=== PATIENT | female | born 1925 | race African-American/Black ===

== ENCOUNTER 2016-07-11 20:37 | Inpatient (IN) | payer MEDICARE, OTHER ==
--- NOTE | ~2016-07-11 | DS ---
Discharge Summary [facility] [address] [place]. [address] NAME: DICK ALFONSO : [birth year] STATUS : DIS IN PAT#: [id number] AGE: 89 ADM/REG DATE : 07/11/16 MR#: [id number] REPORT SERV DATE: 07/20/16 DICTATED BY: AUSTIN DUQUE DATE: 07/17/16 REPORT STATUS : Draft TRANSCRIBED BY: ADDISON DATE: 07/17/16 ADMISSION DATE: 07/11/2016 DISCHARGE DATE: 07/17/2016 DISCHARGE DIAGNOSES: 1. Right upper extremity acute deep venous thrombosis. 2. Acute decompensated heart failure with preserved EF. 3. Recurrent catheter-associated urinary tract infections. 4. Chronic obstructive pulmonary disease exacerbation. 5. Chronic kidney disease stage 3. 6. Chronic hyponatremia secondary to SIADH. 7. Hypertension. 8. History of gout. 9. History of peripheral arterial disease. 10.History of chronic right lower extremity ulcer. 11.History of cerebrovascular accident. 12.Paraplegia. 13.Hypoalbuminemia. 14.History of chronic Garza catheter placement. 15.Normocytic anemia. 16.Lower lip hematoma, resolved. 17.Epistaxis, resolved. 18.Bilateral conjunctivitis, resolved. 19.History of coronary artery disease with a remote history of CABG. DISCHARGE CONDITION: Stable. CONSULTATIONS: General Surgery, Dr. Rusesl Diaz. PROCEDURE: Bedside right lower extremity wound debridement. HISTORY OF PRESENT ILLNESS: For detailed HPI, please make reference to Dr. Alessandro Infante's dictation on 07/11/2016. In Brief, this is an 89-year-old female with medical history of congestive heart failure, COPD, and chronic kidney disease stage 3 who presented to the hospital with complaints of worsening shortness of breath, dry cough, wheezing, and significant volume overload. In the ER, temperature was 98.6, pulse 77, blood pressure 158/71, respiratory rate 24, on 2 L of oxygen. Physical exam significant for scattered rhonchi in the upper respiratory tract with diminished breath sounds in the lower lung bases and bilateral lower extremity edema. Also noted is a chronic Garza catheter in place and right lower extremity chronic ulcer. Laboratory data with WBC 11.1, hemoglobin 10, and hematocrit 30. Sodium 125, potassium 3.7, creatinine 1.48. BNP 626. Chest x-ray showed evidence of pulmonary vascular congestion. EKG with normal sinus rhythm with left ventricular hypertrophy. No acute ST-T wave changes. An assessment of acute decompensated heart failure with reduced ejection fraction, COPD Discharge Summary [place] [address] [place]. [address] NAME: DICK ALFONSO : [birth year] STATUS : DIS IN PAT#: [id number] AGE: 89 ADM/REG DATE : 07/11/16 MR#: [id number] REPORT SERV DATE: 07/20/16 DICTATED BY: AUSTIN DUQUE DATE: 07/17/16 REPORT STATUS : Draft TRANSCRIBED BY: MODL DATE: 07/17/16 exacerbation, and catheter-associated urinary tract infection was made in the ER, and the patient was admitted to the Hospitalist Service for further management. HOSPITAL COURSE: Acute decompensated heart failure with reduced EF. The patient was started on IV diuretics. The patient was noted to have significant urine output. Shortness of breath improved and oxygenation also improved during the course of this admission. A repeat echocardiogram was done that showed ejection fraction of 50% as opposed to the last known EF of 30%. The patient was advised to continue beta-armando and diuretics and follow up with Cardiology as an outpatient. No ANDRE inhibitors were prescribed to this patient given known history of renal insufficiency. The patient was advised to follow up with primary care physician and Nephrology as outpatient as regards to re-initiation of ANDRE inhibitors. Catheter-associated urinary tract infection. The patient's urinalysis was positive for leukocyte esterase with noted moderate WBC. The patient was started on empiric IV antibiotics with Rocephin. Urine cultures grew pseudomonas and Enterococcus faecalis with questionable possibility of chronic colonization with this organism as the patient has had repeated UTIs; however, given overall patient's presentation of leukocytosis and some intermittent episodes of confusion, the patient will complete a total course of seven days of antibiotic therapy and follow up with primary care physician. The patient's son was educated on Garza catheter care prior to discharge. Acute DVT of the right upper extremity. During the course of this admission, the patient was noted to have had right upper extremity swelling. A venous Doppler of the upper extremity was done that confirmed the presence of a small thrombus in the right cephalic vein. The patient was started on a heparin drip. However, the patient developed epistaxis and lower lip hematoma and hence heparin was discontinued. During the course of this admission, the patient was noted to have been taking aspirin and Plavix at home prior to admission. I called the patient's primary care physician who clarified that the patient had chronically been on aspirin and Plavix but currently no coronary stents or carotid stents and need for chronic dual antiplatelet therapy unclear. Hence, in conjunction with primary care physician, it was decided to stop aspirin and Plavix and continue transition of patient to Eliquis. The patient was started on Eliquis for DVT treatment during the course of this admission. The patient had no further episodes of bleeds. Hematoma and epistaxis resolved prior to discharge. The patient's hemoglobin remained stable at 10. No evidence of GI bleed noted. The patient was advised to continue Eliquis and follow up with primary care physician as outpatient. Asymptomatic candiduria. The patient's urine culture also grew yeast. The patient was not treated for this as the patient was asymptomatic. The patient's son was educated on Garza catheter care. Chronic right lower extremity ulcer. The patient's general surgeon Dr. Diaz was consulted who came to the bedside and performed a gentle wound debridement and also provided standing instruction on the patient's wound dressing. The patient's son was advised, and these instructions were also provided to the son prior to discharge. DISCHARGE CONDITION: Stable. Discharge Summary [address] [address] NAME: DICK ALFONSO : [birth year] STATUS : DIS IN PAT#: [id number] AGE: 89 ADM/REG DATE : 07/11/16 MR#: [id number] REPORT SERV DATE: 07/20/16 DICTATED BY: AUSTIN DUQUE DATE: 07/17/16 REPORT STATUS : Draft TRANSCRIBED BY: MODLori DATE: 07/17/16 DISCHARGE MEDICATIONS: 1. Eliquis 2.5 mg p.o. daily. 2. Bumex 1 mg p.o. b.i.d. 3. Ceftin 250 mg p.o. b.i.d. for four days. 4. Norvasc 10 mg p.o. daily. 5. Zyloprim 300 mg p.o. daily. 6. Coreg 12.5 mg p.o. b.i.d. 7. Vitamin B12, 1000 mcg p.o. daily. 8. Docusate 100 mg p.o. daily. 9. Ferrous sulfate 325 mg p.o. daily. 10.Florastor 250 mg p.o. b.i.d. 11.Sodium bicarb 650 mg p.o. b.i.d. 12.Prednisone 10 mg p.o. daily (the patient was on chronic steroids prior to presentation, the patient's family could not clarify definitive diagnosis for chronic steroids, the patient's family was advised to clarify with primary care physician the need of chronic steroid). 13.Albuterol inhaler one puff b.i.d. DISCHARGE FOLLOWUP: 1. Follow up with primary care physician within one week of discharge. 2. Follow up with Nephrology as an outpatient. 3. Follow up with Cardiology as an outpatient. DISCHARGE ACTIVITY: As tolerated. DISCHARGE DISPOSITION: Home with home health. The patient's son was at the bedside at the time of discharge and agreed to the above plan. All questions and concerns were addressed prior to discharge. Greater than 40 minutes were used to prepare this patient's discharge, reconcile medication, and advise the patient on discharge plans and followup. DICTATED BY: MD YAO Blood/ADDISON Austin Duque MD / [id number] CC: Discharge Summary [address] [address] NAME: DICK ALFONSO : [birth year] STATUS : DIS IN PAT#: [id number] AGE: 89 ADM/REG DATE : 07/11/16 MR#: [id number] REPORT SERV DATE: 07/20/16 DICTATED BY: AUSTIN DUQUE DATE: 07/17/16 REPORT STATUS : Draft TRANSCRIBED BY: MODL DATE: 07/17/16 MD Esperanza Blood III, M.D.
--- NOTE | ~2016-07-11 | CN ---
Consultation Report [facility] [address] [place]. [address] NAME: DICK ALFONSO : [birth year] STATUS : ADM IN PAT#: [id number] AGE: 89 ADM/REG DATE : 07/11/16 MR#: [id number] REPORT SERV DATE: 07/15/16 DICTATED BY: ROSALINA DIAZ III DATE: 07/15/16 REPORT STATUS : Draft TRANSCRIBED BY: MODL DATE: 07/15/16 CONSULTATION DATE OF CONSULTATION: 07/15/2016 HISTORY OF PRESENT ILLNESS: The patient was admitted with systolic congestive heart failure and acute bronchitis with hypoalbuminemia and nephrotic syndrome, which was newly diagnosed. She also has chronic kidney disease, stage 3, with inappropriate ADH syndrome as well as UTIs with chronic Garza catheterization, and also dementia. The patient has a right leg wound, which has been followed [facility] for a number of months, over one year. The patient's wound on the lateral aspect of the right leg has been treated with antibiotics on number of occasions due to acute cellulitis. Most recently, she was changed from Santyl to Iodosorb due to more secretory in nature of the wound. Iodosorb was used to help dry the wound up. The patient is very confused but reasonably manageable and is tolerating p.o. intake without obvious aspiration. Her chest with a few rhonchi in the bases and her abdomen was soft and nontender. Her lower extremities were very distorted from arthritis and sequela post CVA. She has a right lower extremity lateral decubitus wound, which is 10.4 cm x 2.3 cm with a depth of 0.5. There was one little skip area in the center, but for all practical purposes, this can be measured as one wound. The wound bed is relatively clean, but there is still pressure secondary to the contracted right hip, which the patient tends to abduct laterally and put pressure on this area. The wound base is relatively clean. There is no evidence of cellulitis at this time. Her right ankle was very distorted and she has an Allevyn bandage over it to protect from pressure to the heel, which has been in jeopardy for ulceration as well. PAST HISTORY: The significant past history includes dementia, stroke in the past, cataracts, intra-ocular lens implants, high cholesterol, peripheral artery disease, CABG x3, congestive heart failure, coronary artery disease, myocardial infarction, cardiomyopathy, history of ventricular tachycardia, bronchitis, COPD, arthritis, gout, hip replacement on the left, left lower calf and heel surgery to remove foreign body. Allegedly has only one functioning kidney, is incontinent, bilateral feet ulcers in the past, and a right lower extremity lateral ulceration. Diabetes mellitus in reasonable control. Significant anemia. PAST SURGICAL HISTORY: Past surgical intervention includes multiple debridements on the left, multiple debridements on the right with multiple therapeutic changes in ulceration on the right secondary to cellulitis which has resolved now. IMPRESSION: The patient's ulcer of the right lower extremity is relatively stable and orders will be continued as outlined. The ulcer is a grade 3 Chamberlain lower extremity diabetic wound, which is stable. Orders have been changed very little, but Telfa should not be used since we are using the Iodosorb and packing it with Kerlix sponge to try to help with Consultation Report [address] [place]. [address] NAME: DICK ALFONSO ALLISON : [birth year] STATUS : ADM IN [facility]#: [id number] AGE: 89 ADM/REG DATE : 07/11/16 MR#: [id number] REPORT SERV DATE: 07/15/16 DICTATED BY: ROSALINA DIAZ III DATE: 07/15/16 REPORT STATUS : Draft TRANSCRIBED BY: ADDISON DATE: 07/15/16 debridement and Telfa prevents that from occurring. Will use zinc oxide to the periwound and continue with Iodosorb gel to the wound base. Continue with offloading Mepilex or Allevyn dressings to the heels and sacral areas. Offloading with log rolling as best we can afford would certainly be advantageous to the patient's potential for healing. Follow up in the Wound Center has been planned for two to three weeks, and I have discussed this with the patient's son, who is her primary caregiver. PAT/ADDISON Rosalina Diaz III, M.D. / [id number] CC: MD DAVID Blood LESLIE [facility] [place]
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
[2016-07-11 19:55] LABS: ALLENS TEST Pos; BE (BASE EXCESS) 0.1 MEQ/L (0 +/- 2.5); DEVICE NC; HCO3 (ACTUAL BICARBONATE) 24.5 MEQ/L (23-27); HEMOBLOGIN CONTENT 11.4 G/DL (12-16); INSTRUMENT SERIAL # 8087; METHEMOGLOBIN 0.2 % (0-3); O2 CONTENT 15.8 VOL% (18-24); OPERATOR ID 16503; PCO2 (CO2 TENSION) 39 MMHG (35-45); PO2 (O2 TENSION) 116 MMHG (79-93); SAMPLE Arterial; pH 7.42 (7.37-7.43)
[~2016-07-11 20:37] MED LIST: ADVAIR250 INH; ASAB PO; AZO-CRANBERY450 MG PO; B121000P IM; BROVANA15 MCG INH; BYSTOLIC5 MG PO; CALTRAT600 PO; CARD30 PO; CEFAZ1 IV; CEFT2 PO; COMBIGAN0.2 MG/0.5 OPH; COMBIVENT RESPIM4 GM INH; COREG12 PO; COREG3 PO; CRANBERRY OTC PO; CRANBERRY TAB PO; CYANO1000T PO; D.O.S.100 MG PO; DEMA20 PO; DEXA5B PO; DSS PO; DUONEB INH; FERROUS SULF325 M1 PO; FLORASTOR250 MG PO; HALF81 PO; INSNOVR SC; IODOSORB TOP; IRON325 MG PO; K250 PO; KDUR10 PO; KLOR-CON 1010 MEQ PO; L20 PO; LANTISEPTIC TOP; LEVAQUIN750 MG PO; LIPITOR40 PO; LISINOPRIL40 MG PO; LORTAB 5 PO; LOZOLTAB PO; MELA3 PO; MICRO-K10 MEQ PO; MIRALAXPKT PO; NORCO1 TA1 PO; NORV10 PO; NORV25 PO; OXYGEN; P10 PO; P20 PO; PEP20 PO; PLAVIX PO; PRIN5 PO; PROVENTSOL INH; PROVHFA INH; PULRESP.5 INH; PULRESP1 INH; SODBICAR10 PO; SODCLTAB PO; SPIRO25 PO; SYMBICORT 160/41 INH INH; T3; TYLENOL ARTH650 MG PO; V5 PO; VITAMIN B-121000 MC1 PO; VITAMIN B-121000 MC1 SL; VITAMIN B12 OTC PO; VITC500 PO; XALAT OPH; Z300 PO; ZANTAC 150 PO; ZYVOXPO PO
[2016-07-11 20:47] LABS: BASOPHILS 0.1 %; BASOPHILS ABSOLUTE 0.01 10/3/uL (0.0-0.16); EOSINOPHILS 0.1 %; EOSINOPHILS ABSOLUTE 0.01 10/3/uL (0.0-0.53); HEMATOCRIT 30.5 % (36.0-48.0); HEMOGLOBIN 10.4 g/dL (12.0-16.0); IMMATURE GRANULOCYTES 0.4 %; LYMPHOCYTES 6.4 %; LYMPHOCYTES ABSOLUTE 0.71 10/3/uL (0.67-4.30); MEAN CORPUS HGB CONC 34.1 g/dL (32.0-36.0); MEAN CORPUSCULAR HEMOGLOB 30.8 pg (26.0-34.0); MEAN PLATELET VOLUME 9.2 fL (9.2-13.0); MONOCYTES ABSOLUTE 0.22 10/3/uL (0.21-1.20); NEUTROPHILS ABSOLUTE 10.14 10/3/uL (2.02-8.40); RBC DISTRIBUTION WIDTH 15.5 % (12.0-16.0); RED CELL COUNT 3.38 10/6/uL (4.0-5.6)
[2016-07-11 20:48] LABS: ER CBC TAT 0 Hrs 07 Mins; IMMATURE GRANULOCYTES ABSOLUTE 0.05 10/3/uL (0.0-0.11); MANUAL DIFF NO %; MEAN CORPUSCULAR VOLUME 90.2 fL (80-100); PLATELET COUNT 249 10/3/uL (150-400); WHITE BLOOD CELLS 11.1 10/3/uL (4.5-10.5)
[2016-07-11 20:54] LABS: INTERNATIONAL NORMAL RATI 1.1 UNITS (-); PROTIME (NOT ORD) 13.9 SEC (12.0-14.5)
[2016-07-11 21:11] LABS: A/G RATIO 0.6 (0.7-1.9); ALBUMIN 2.2 G/DL (3.5-5.0); ALKALINE PHOSPHATASE 211 U/L (45-117); BUN (BLOOD UREA NITROGEN) 43 MG/DL (6-23); CALCIUM, SERUM 8.2 MG/DL (8.5-10.4); CHLORIDE, SERUM 89 MMOL/L (96-112); CO2 (CARBON DIOXIDE) 27 MMOL/L (24-34); CREATININE 1.48 MG/DL (0.55-1.02); GFR AFRICAN AMERICAN 36 ML/MIN (>=60); GFR NON AFRICAN AMERICAN 31 ML/MIN (>=60); GLOBULIN 3.8 G/DL (2.5-4.1); GLUCOSE, SERUM 132 MG/DL (60-99); POTASSIUM, SERUM 3.7 MMOL/L (3.5-5.3); SGOT(AST) 23 U/L (5-40); SGPT(ALT) 34 U/L (5-65); SODIUM, SERUM 125 MMOL/L (135-148); TOTAL BILIRUBIN 0.3 MG/DL (0-1.2)
[2016-07-11 21:27] LABS: BAND NEUTROPHILS 2 %; ER DIFF TAT 0 Hrs 46 Mins; LYMPHOCYTES 6 %; LYMPHOCYTES ABSOLUTE (CALC) 0.67 10/3/uL (0.67-4.30); MONOCYTES 2 %; MONOCYTES ABSOLUTE (CALC) 0.22 10/3/uL (0.21-1.20); NEUTROPHILS ABSOLUTE (CALC) 10.21 10/3/uL (2.02-8.40); SEGMENTED NEUTROPHIL (0) 90 %; TOTAL NUCLEATED CELLS 100
[2016-07-11 21:28] LABS: PLATELET ESTIMATE ADQ (ADEQUATE); RBC MORPHOLOGY NORM (NORMAL)
[2016-07-12 05:34] LABS: CREATININE, URINE 25.9 MG/DL
[2016-07-12 05:47] LABS: ASCORBIC ACID (UR NOT ORDER) 40 (NEG); BILIRUBIN, URINE NEGATIVE (NEG); KETONE, URINE NEGATIVE (NEG); LEUKOCYTE ESTERASE(NOT OR LARGE (NEG); WBC (NOT ORDERED) (RFLEX) 163 (0-5)
[2016-07-12 06:34] LABS: HEMATOCRIT 31.3 % (36.0-48.0); HEMOGLOBIN 10.7 g/dL (12.0-16.0); MEAN CORPUS HGB CONC 34.2 g/dL (32.0-36.0); MEAN CORPUSCULAR HEMOGLOB 30.9 pg (26.0-34.0); MEAN CORPUSCULAR VOLUME 90.5 fL (80-100); PLATELET COUNT 247 10/3/uL (150-400); RBC DISTRIBUTION WIDTH 15.5 % (12.0-16.0); RED CELL COUNT 3.46 10/6/uL (4.0-5.6)
[2016-07-12 06:35] LABS: MANUAL DIFF YES %
[2016-07-12 06:43] LABS: INTERNATIONAL NORMAL RATI 1.1 UNITS (-); PROTIME (NOT ORD) 14.4 SEC (12.0-14.5)
[2016-07-12 06:44] LABS: PARTIAL THROMBO TIME 26.4 SEC (22.5-37.2)
[2016-07-12 07:02] LABS: A/G RATIO 0.5 (0.7-1.9); ALBUMIN 2.2 G/DL (3.5-5.0); ALKALINE PHOSPHATASE 210 U/L (45-117); BUN (BLOOD UREA NITROGEN) 40 MG/DL (6-23); CALCIUM, SERUM 8.7 MG/DL (8.5-10.4); CHLORIDE, SERUM 91 MMOL/L (96-112); CK-MB 1.6 NG/ML; CO2 (CARBON DIOXIDE) 23 MMOL/L (24-34); CPK 44 U/L (0-200); CREATININE 1.48 MG/DL (0.55-1.02); GFR AFRICAN AMERICAN 36 ML/MIN (>=60); GFR NON AFRICAN AMERICAN 31 ML/MIN (>=60); GLOBULIN 4.1 G/DL (2.5-4.1); GLUCOSE, SERUM 101 MG/DL (60-99); POTASSIUM, SERUM 3.9 MMOL/L (3.5-5.3); SGOT(AST) 27 U/L (5-40); SGPT(ALT) 30 U/L (5-65); SODIUM, SERUM 125 MMOL/L (135-148); TOTAL BILIRUBIN 0.3 MG/DL (0-1.2); TOTAL PROTEIN 6.3 G/DL (6.0-8.5)
[2016-07-12 07:05] LABS: TROPONIN I 0.05 NG/ML (<0.05)
[2016-07-12 07:55] LABS: BAND NEUTROPHILS 2 %; LYMPHOCYTES 6 %; LYMPHOCYTES ABSOLUTE (CALC) 0.54 10/3/uL (0.67-4.30); MONOCYTES 3 %; MONOCYTES ABSOLUTE (CALC) 0.27 10/3/uL (0.21-1.20); NEUTROPHILS ABSOLUTE (CALC) 8.19 10/3/uL (2.02-8.40); PLATELET ESTIMATE ADQ (ADEQUATE); RBC MORPHOLOGY NORM (NORMAL); SEGMENTED NEUTROPHIL (0) 89 %; TOTAL NUCLEATED CELLS 100
[2016-07-13 05:48] LABS: BASOPHILS 0.1 %; BASOPHILS ABSOLUTE 0.01 10/3/uL (0.0-0.16); EOSINOPHILS 0 %; HEMATOCRIT 32.8 % (36.0-48.0); IMMATURE GRANULOCYTES 0.3 %; IMMATURE GRANULOCYTES ABSOLUTE 0.02 10/3/uL (0.0-0.11); LYMPHOCYTES 7.4 %; LYMPHOCYTES ABSOLUTE 0.54 10/3/uL (0.67-4.30); MANUAL DIFF NO %; MEAN CORPUS HGB CONC 33.5 g/dL (32.0-36.0); MEAN CORPUSCULAR HEMOGLOB 31.2 pg (26.0-34.0); MEAN CORPUSCULAR VOLUME 92.9 fL (80-100); MONOCYTES ABSOLUTE 0.07 10/3/uL (0.21-1.20); NEUTROPHILS 91.2 %; PLATELET COUNT 279 10/3/uL (150-400); RBC DISTRIBUTION WIDTH 15.4 % (12.0-16.0); RED CELL COUNT 3.53 10/6/uL (4.0-5.6); WHITE BLOOD CELLS 7.3 10/3/uL (4.5-10.5)
[2016-07-13 05:52] LABS: CALCIUM, SERUM 8.5 MG/DL (8.5-10.4); CHLORIDE, SERUM 93 MMOL/L (96-112); GFR AFRICAN AMERICAN 33 ML/MIN (>=60); GFR NON AFRICAN AMERICAN 28 ML/MIN (>=60); POTASSIUM, SERUM 4.3 MMOL/L (3.5-5.3); SODIUM, SERUM 129 MMOL/L (135-148)
[2016-07-13 05:55] LABS: BUN (BLOOD UREA NITROGEN) 47 MG/DL (6-23); CO2 (CARBON DIOXIDE) 29 MMOL/L (24-34); GLUCOSE, SERUM 137 MG/DL (60-99)
[2016-07-13 06:18] LABS: PROCALCITONIN 0.45 ng/mL (<0.5)
[2016-07-13 11:39] LABS: T.V. 24HR UR (NOT ORD) 1050 ML (600-1600)
[2016-07-13 11:48] LABS: T.P. URINE (NOT ORDER RAN 187.3 MG/DL; T.P.24HR UR (NOT ORDER) 1967 MG/24HR (40-150)
[2016-07-13 17:38] LABS: ASCORBIC ACID (UR NOT ORDER) 40 (NEG); BILIRUBIN, URINE NEGATIVE (NEG); KETONE, URINE NEGATIVE (NEG); LEUKOCYTE ESTERASE(NOT OR MOD (NEG); WBC (NOT ORDERED) (RFLEX) 33 (0-5)
[2016-07-14 06:57] LABS: BASOPHILS 0.1 %; BASOPHILS ABSOLUTE 0.01 10/3/uL (0.0-0.16); EOSINOPHILS 0 %; HEMATOCRIT 31.3 % (36.0-48.0); HEMOGLOBIN 10.6 g/dL (12.0-16.0); IMMATURE GRANULOCYTES 0.7 %; IMMATURE GRANULOCYTES ABSOLUTE 0.06 10/3/uL (0.0-0.11); LYMPHOCYTES 7.7 %; LYMPHOCYTES ABSOLUTE 0.68 10/3/uL (0.67-4.30); MEAN CORPUS HGB CONC 33.9 g/dL (32.0-36.0); MEAN CORPUSCULAR VOLUME 91.5 fL (80-100); MONOCYTES ABSOLUTE 0.18 10/3/uL (0.21-1.20); NEUTROPHILS 89.5 %; NEUTROPHILS ABSOLUTE 7.88 10/3/uL (2.02-8.40); PLATELET COUNT 311 10/3/uL (150-400); RBC DISTRIBUTION WIDTH 15.1 % (12.0-16.0); RED CELL COUNT 3.42 10/6/uL (4.0-5.6); WHITE BLOOD CELLS 8.8 10/3/uL (4.5-10.5)
[2016-07-14 07:00] LABS: MANUAL DIFF NO %
[2016-07-14 07:10] LABS: ALBUMIN 2.1 G/DL (3.5-5.0); BUN (BLOOD UREA NITROGEN) 50 MG/DL (6-23); CALCIUM, SERUM 8.6 MG/DL (8.5-10.4); CHLORIDE, SERUM 93 MMOL/L (96-112); CO2 (CARBON DIOXIDE) 25 MMOL/L (24-34); GFR AFRICAN AMERICAN 33 ML/MIN (>=60); GFR NON AFRICAN AMERICAN 28 ML/MIN (>=60); GLUCOSE, SERUM 156 MG/DL (60-99); PHOSPHORUS, SERUM 4.3 MG/DL (2.5-4.5); POTASSIUM, SERUM 4.2 MMOL/L (3.5-5.3); SODIUM, SERUM 128 MMOL/L (135-148)
[2016-07-14 10:35] LABS: HEMATOCRIT 30.7 % (36.0-48.0); HEMOGLOBIN 10.7 g/dL (12.0-16.0)
[2016-07-14 13:57] LABS: HEMATOCRIT 31.6 % (36.0-48.0); HEMOGLOBIN 10.8 g/dL (12.0-16.0)
[2016-07-15 07:13] LABS: BASOPHILS 0.2 %; BASOPHILS ABSOLUTE 0.02 10/3/uL (0.0-0.16); EOSINOPHILS 0.1 %; EOSINOPHILS ABSOLUTE 0.01 10/3/uL (0.0-0.53); HEMATOCRIT 29.2 % (36.0-48.0); IMMATURE GRANULOCYTES 1.2 %; IMMATURE GRANULOCYTES ABSOLUTE 0.13 10/3/uL (0.0-0.11); LYMPHOCYTES 16.8 %; MANUAL DIFF NO %; MEAN CORPUS HGB CONC 34.2 g/dL (32.0-36.0); MEAN CORPUSCULAR HEMOGLOB 31.1 pg (26.0-34.0); MEAN CORPUSCULAR VOLUME 90.7 fL (80-100); MEAN PLATELET VOLUME 8.9 fL (9.2-13.0); MONOCYTES 7.6 %; MONOCYTES ABSOLUTE 0.81 10/3/uL (0.21-1.20); NEUTROPHILS 74.1 %; NEUTROPHILS ABSOLUTE 7.92 10/3/uL (2.02-8.40); PLATELET COUNT 238 10/3/uL (150-400); RBC DISTRIBUTION WIDTH 15.6 % (12.0-16.0); RED CELL COUNT 3.22 10/6/uL (4.0-5.6); WHITE BLOOD CELLS 10.7 10/3/uL (4.5-10.5)
[2016-07-15 07:19] LABS: BAND NEUTROPHILS 1 %; LYMPHOCYTES 18 %; LYMPHOCYTES ABSOLUTE (CALC) 1.93 10/3/uL (0.67-4.30); MONOCYTES 8 %; MONOCYTES ABSOLUTE (CALC) 0.86 10/3/uL (0.21-1.20); NEUTROPHILS ABSOLUTE (CALC) 7.92 10/3/uL (2.02-8.40); PLATELET ESTIMATE ADQ (ADEQUATE); RBC MORPHOLOGY NORM (NORMAL); SEGMENTED NEUTROPHIL (0) 73 %; TOTAL NUCLEATED CELLS 100
[2016-07-15 07:26] LABS: ALBUMIN 2.1 G/DL (3.5-5.0); BUN (BLOOD UREA NITROGEN) 66 MG/DL (6-23); CALCIUM, SERUM 8.3 MG/DL (8.5-10.4); CHLORIDE, SERUM 96 MMOL/L (96-112); CO2 (CARBON DIOXIDE) 25 MMOL/L (24-34); GFR AFRICAN AMERICAN 28 ML/MIN (>=60); GFR NON AFRICAN AMERICAN 25 ML/MIN (>=60); POTASSIUM, SERUM 4.3 MMOL/L (3.5-5.3); SODIUM, SERUM 132 MMOL/L (135-148)
[2016-07-15 07:27] LABS: GLUCOSE, SERUM 100 MG/DL (60-99); PHOSPHORUS, SERUM 3.2 MG/DL (2.5-4.5)
[2016-07-15 18:49] LABS: HEMOGLOBIN 10.5 g/dL (12.0-16.0)
[2016-07-16 07:34] LABS: BASOPHILS 0.2 %; BASOPHILS ABSOLUTE 0.02 10/3/uL (0.0-0.16); EOSINOPHILS 0.6 %; EOSINOPHILS ABSOLUTE 0.07 10/3/uL (0.0-0.53); HEMATOCRIT 32.2 % (36.0-48.0); HEMOGLOBIN 10.9 g/dL (12.0-16.0); IMMATURE GRANULOCYTES 1.4 %; IMMATURE GRANULOCYTES ABSOLUTE 0.16 10/3/uL (0.0-0.11); LYMPHOCYTES ABSOLUTE 2.24 10/3/uL (0.67-4.30); MEAN CORPUS HGB CONC 33.9 g/dL (32.0-36.0); MEAN CORPUSCULAR HEMOGLOB 30.8 pg (26.0-34.0); MEAN PLATELET VOLUME 8.6 fL (9.2-13.0); MONOCYTES 8.4 %; MONOCYTES ABSOLUTE 0.94 10/3/uL (0.21-1.20); NEUTROPHILS 69.4 %; NEUTROPHILS ABSOLUTE 7.77 10/3/uL (2.02-8.40); PLATELET COUNT 283 10/3/uL (150-400); RBC DISTRIBUTION WIDTH 15.7 % (12.0-16.0); RED CELL COUNT 3.54 10/6/uL (4.0-5.6); WHITE BLOOD CELLS 11.2 10/3/uL (4.5-10.5)
[2016-07-16 07:35] LABS: MANUAL DIFF NO %
[2016-07-16 07:51] LABS: ALBUMIN 2.3 G/DL (3.5-5.0); BUN (BLOOD UREA NITROGEN) 71 MG/DL (6-23); CALCIUM, SERUM 8.7 MG/DL (8.5-10.4); CHLORIDE, SERUM 97 MMOL/L (96-112); CO2 (CARBON DIOXIDE) 31 MMOL/L (24-34); CREATININE 1.87 MG/DL (0.55-1.02); GFR AFRICAN AMERICAN 27 ML/MIN (>=60); GFR NON AFRICAN AMERICAN 23 ML/MIN (>=60); GLUCOSE, SERUM 94 MG/DL (60-99); PHOSPHORUS, SERUM 2.9 MG/DL (2.5-4.5); POTASSIUM, SERUM 4.2 MMOL/L (3.5-5.3); SODIUM, SERUM 134 MMOL/L (135-148)
[2016-07-17 07:07] LABS: HEMATOCRIT 29.3 % (36.0-48.0); MANUAL DIFF YES %; MEAN CORPUS HGB CONC 34.1 g/dL (32.0-36.0); MEAN CORPUSCULAR VOLUME 90.7 fL (80-100); MEAN PLATELET VOLUME 9.1 fL (9.2-13.0); PLATELET COUNT 251 10/3/uL (150-400); RBC DISTRIBUTION WIDTH 15.8 % (12.0-16.0); RED CELL COUNT 3.23 10/6/uL (4.0-5.6); WHITE BLOOD CELLS 12.5 10/3/uL (4.5-10.5)
[2016-07-17 07:23] LABS: BUN (BLOOD UREA NITROGEN) 72 MG/DL (6-23); CALCIUM, SERUM 8.1 MG/DL (8.5-10.4); CHLORIDE, SERUM 98 MMOL/L (96-112); CO2 (CARBON DIOXIDE) 33 MMOL/L (24-34); CREATININE 1.69 MG/DL (0.55-1.02); GFR AFRICAN AMERICAN 31 ML/MIN (>=60); GFR NON AFRICAN AMERICAN 26 ML/MIN (>=60); GLUCOSE, SERUM 94 MG/DL (60-99); POTASSIUM, SERUM 4.2 MMOL/L (3.5-5.3); SODIUM, SERUM 135 MMOL/L (135-148)
[2016-07-17 07:39] LABS: BAND NEUTROPHILS 4 %; EOSINOPHILS 1 %; EOSINOPHILS ABSOLUTE (CALC) 0.13 10/3/uL (0.0-0.53); IMMATURE GRANS ABSOLUTE (CALC) 0.25 10/3/uL (0.0-0.11); LYMPHOCYTES 20 %; METAMYELOCYTES 2 %; MONOCYTES 6 %; MONOCYTES ABSOLUTE (CALC) 0.75 10/3/uL (0.21-1.20); NEUTROPHILS ABSOLUTE (CALC) 8.88 10/3/uL (2.02-8.40); SEGMENTED NEUTROPHIL (0) 67 %; TOTAL NUCLEATED CELLS 100
[2016-07-17 07:44] LABS: PLATELET ESTIMATE ADQ (ADEQUATE); POLYCHROMASIA 1+ (2-5/OIF) (0-1/OIF); TEARDROP SHAPED RBCS OCC (0-2/OIF)
[2016-07-17 07:45] LABS: HELMET CELLS OCC (0-2/OIF); TARGET CELLS OCC (1-2/OIF) (0-1/OIF)
[2016-07-17] MEDS ORDERED: ELIQUIS 2.5 MG2.5 MG PO (12:15)
[2016-07-17] MEDS ORDERED: BUM1 PO (12:38)
[2016-07-17] MEDS ORDERED: CEFT2 PO (12:50)
[2016-07-17] MEDS ORDERED: [UNRECOGNIZED DRUG - REMARK] (12:52)
[2016-08-09] MEDS ORDERED: FERROUS SULF325 M1 PO (12:09)
[2016-08-09] MEDS ORDERED: DSS PO (12:09)
[2016-08-09] MEDS ORDERED: ALPHAGAN OPH (12:10)
[2016-08-09] MEDS ORDERED: ZANTAC 150 PO (12:10)
[2016-08-09] MEDS ORDERED: TRENTAL400 PO (12:11)
[2016-08-09] MEDS ORDERED: NORCO1 TA1 PO (12:14)
[2016-08-09] MEDS ORDERED: DUONEB INH (12:14)
[2016-08-09] MEDS ORDERED: COREG12 PO (12:15)
[2016-08-09] MEDS ORDERED: NYSTATPOW TOP (12:16)
[2016-08-09] MEDS ORDERED: NORV10 PO (12:17)
[2016-08-09] MEDS ORDERED: BUM1 PO (12:18)
[2016-08-09] MEDS ORDERED: ELIQUIS 2.5 MG2.5 MG PO (12:18)
[2016-08-09] MEDS ORDERED: Z300 PO (12:19)
[2016-08-09] MEDS ORDERED: XALAT OPH (12:19)
[2016-08-09] MEDS ORDERED: COSOPT OPH (12:19)
[2016-08-09] MEDS ORDERED: P10 PO (12:20)
[2016-08-09] MEDS ORDERED: VITC500 PO (12:24)
[2016-08-09] MEDS ORDERED: IODOSORB TOP (12:24)
[2016-08-09] MEDS ORDERED: V5 PO (12:25)
[2016-08-09] MEDS ORDERED: FLORASTOR250 MG PO (12:25)
[2016-08-09] MEDS ORDERED: MUCINEX600 MG PO (12:27)
== END 2016-07-17 16:11 | disposition home health service (06) | DRG 698 ==
LOC: ER 20:37 → 7NO 22:30
PROVIDERS: Emergency Medicine; Hospitalist; Internal Medicine
PROC: 0HDKXZZ Extraction of Right Lower Leg Skin, External Approach (ICD-10-PCS; principal; 2016-07-15)
DX: T83.511A Infection and inflammatory reaction due to indwelling urethral catheter, initial encounter (principal); I50.23 Acute on chronic systolic (congestive) heart failure; E22.2 Syndrome of inappropriate secretion of antidiuretic hormone; I13.0 Hypertensive heart and chronic kidney disease with heart failure and stage 1 through stage 4 chronic kidney disease, or unspecified chronic kidney disease; J44.0 Chronic obstructive pulmonary disease with (acute) lower respiratory infection; G82.20 Paraplegia, unspecified; L89.893 Pressure ulcer of other site, stage 3; J44.1 Chronic obstructive pulmonary disease with (acute) exacerbation; I82.621 Acute embolism and thrombosis of deep veins of right upper extremity; N18.3 Chronic kidney disease, stage 3 (moderate); I25.10 Atherosclerotic heart disease of native coronary artery without angina pectoris; Z95.5 Presence of coronary angioplasty implant and graft; Z95.1 Presence of aortocoronary bypass graft; I73.9 Peripheral vascular disease, unspecified; R04.0 Epistaxis; J20.9 Acute bronchitis, unspecified; Z74.01 Bed confinement status; Z79.52 Long term (current) use of systemic steroids
CPT/HCPCS: 36600; 70450; 71010; 73590-RT; 80048; 80053; 80069; 81001; 81050; 82140; 82550; 82553; 82570; 82805; 82962; 83605; 83735; 83880; 83935; 84100; 84145; 84156; 84300; 84443; 84484; 85014; 85018; 85025; 85610; 85730; 87040; 87077; 87086; 87186; 93005; 93306; 93971; 94640; 96374; 97161-GP; 99285; A9270-GY; G8978-CN-GP; G8979-CN-GP; G8980-CN-GP; J1940; J2920; J3370